=== PATIENT | female | born 1975 | race Two or more races ===

== ENCOUNTER 2018-06-09 08:34 | Outpatient (CLI) | payer OTHER ==
[2018-06-09] MEDS ORDERED: METOPROLOL TART50 MG PO (12:08)
[2018-06-09] MEDS ORDERED: NORVASC2.5 M1 PO (12:08)
== END 2018-06-09 08:51 | disposition home or self-care (01) ==
LOC: LAB 08:34
DX: Z15.01 Genetic susceptibility to malignant neoplasm of breast (principal); I10 Essential (primary) hypertension

== ENCOUNTER 2018-06-10 14:43 | Inpatient (IN) | payer OTHER ==
[~2018-06-10 14:43] MED LIST: METOPROLOL TART50 MG PO; NORVASC2.5 M1 PO
== END 2018-06-13 15:01 | disposition home or self-care (01) | DRG 941 ==
LOC: O/R 06-11 06:04 → SURG 06-11 06:04 → SURH 06-11 14:41 → SURG 06-11 21:53
PROVIDERS: Surgery; ADMIT Plastic Surgery
PROC: 0HTV0ZZ Resection of Bilateral Breast, Open Approach (ICD-10-PCS; principal; 2018-06-11 20:15)
PROC: 0HHV0NZ Insertion of Tissue Expander into Bilateral Breast, Open Approach (ICD-10-PCS; 2018-06-11 20:15)
DX: Z15.01 Genetic susceptibility to malignant neoplasm of breast (principal); Z90.13 Acquired absence of bilateral breasts and nipples

== ENCOUNTER 2018-08-27 06:24 | Day surgery (SDC) | payer OTHER | END 2018-08-27 13:30 | disposition home or self-care (01) | LOC: CIR.AMB 06:24 | PROVIDERS: Plastic Surgery | PROC: 0HPT0JZ Removal of Synthetic Substitute from Right Breast, Open Approach (ICD-10-PCS; 2018-08-27) | PROC: 0HRV0JZ Replacement of Bilateral Breast with Synthetic Substitute, Open Approach (ICD-10-PCS; 2018-08-27) | PROC: 0H0V0KZ Alteration of Bilateral Breast with Nonautologous Tissue Substitute, Open Approach (ICD-10-PCS; 2018-08-27) | PROC: 0HPU0JZ Removal of Synthetic Substitute from Left Breast, Open Approach (ICD-10-PCS; principal; 2018-08-27 07:00) | DX: Z15.01 Genetic susceptibility to malignant neoplasm of breast (principal); Z90.13 Acquired absence of bilateral breasts and nipples | CPT/HCPCS: 19330; 19342; 19366; C1789 ==

== ENCOUNTER 2019-03-21 05:55 | Day surgery (SDC) | payer OTHER | END 2019-03-21 14:00 | disposition home or self-care (01) | LOC: CIR.AMB 05:55 | PROVIDERS: Plastic Surgery | PROC: 0H0V0JZ Alteration of Bilateral Breast with Synthetic Substitute, Open Approach (ICD-10-PCS; principal; 2019-03-21 08:30) | DX: N65.1 Disproportion of reconstructed breast (principal); Z90.13 Acquired absence of bilateral breasts and nipples; Z15.01 Genetic susceptibility to malignant neoplasm of breast ==